=== PATIENT | male | born 1970 | race Caucasian/White ===

== ENCOUNTER 2017-08-01 21:43 | Emergency (ER) | payer OTHER ==
[~2017-08-01] VITALS: Ht 175.3 cm; Wt 84.8 kg
[2017-08-01 21:45] VITALS: TEMP 36.8; Ht 175.3 cm; Wt 84.8 kg
[2017-08-01 22:18] VITALS: BP 115/69; PULSE 82; O2SAT 96
--- NOTE | 2017-08-01 22:18 | DIAGNOSTIC IMAGING REPORT ---
LEFT ANKLE 3 VIEWS CLINICAL HISTORY: Left ankle twisting injury. FINDINGS: 3 views of the left ankle are obtained. No prior studies are available for comparison at the time of dictation. The skeletal structures are well mineralized. There is a comminuted and minimally distracted avulsion fracture seen along the dorsal aspect of the navicular with overlying soft tissue edema. This is only seen on the lateral view. There is also likely tiny avulsion fragment from the inferior aspect of the lateral malleolus seen only on the frontal view. There is an ankle joint effusion. The ankle mortise is intact. IMPRESSION: 1. There is a comminuted avulsion fracture along the dorsal surface of the navicular with overlying soft tissue edema. 2. There is also likely tiny avulsion fracture from the inferior aspect of the lateral malleolus. Electronically signed by: Kvng Lopez M.D. 08/01/2017 10:17 PM Dictated Date/Time: 08/01/2017 10:15 PM
--- NOTE | 2017-08-01 22:28 | EMERGENCY ROOM VISIT NOTE ---
ED Visit Note First contact with patient: 21:46 CHIEF COMPLAINT: Ankle pain HISTORY OF PRESENT ILLNESS: This 47 yo patient presents to the emergency department after sustaining an injury to the left ankle and foot with a twisting, inversion motion on a misstep on a stair. The patient complains of pain along the outside of the ankle. The patient denies pain of the foot. The patient rates the pain as throbbing and 5/10. The patient is barely able to bear weight on the foot. Constant pain, worse with movement, weight bearing, and the dependent position. No knee pain, the patient is able to move their toes. No numbness or weakness of the foot, no laceration. The patient has not had a previous fracture to this ankle. The patient has taken Motrin for the pain. The patient denies any other injury. REVIEW OF SYSTEMS: A 6 system review of systems was completed with positives and pertinent negatives listed in the HPI. ALLERGIES: Sulfa MEDICATIONS: None PMH: None SOCIAL HISTORY: No drug use PHYSICAL EXAM: Vital Signs: Reviewed Nurse's notes, vital signs stable. GENERAL : Pleasant male, no acute distress, but appears in pain, well-developed, well- nourished. MENTAL STATUS: Alert, oriented to person place and time, and cooperative. MUSCULOSKELETAL: The left ankle is swollen and tender over the lateral malleolus, but the skin is intact and there is no ligamentous instability. There is no fifth metatarsal tenderness. There is no tenderness over the rest of the foot. There is no calf or tibia/fibular tenderness. There is no visual deformity. The foot and toes are warm and well-perfused. Dorsalis pedis pulse 2+. Sensation to pain and light touch is intact. Capillary refill less than 2 seconds. EMERGENCY DEPARTMENT COURSE: I examined the patient. Ice is applied and patient declined pain medicine. X-rays of the left ankle were reviewed by myself and read by radiology and reveal [~ rep ct add3]] LEFT ANKLE 3 VIEWS CLINICAL HISTORY: Left ankle twisting injury. FINDINGS: 3 views of the left ankle are obtained. No prior studies are available for comparison at the time of dictation. The skeletal structures are well mineralized. There is a comminuted and minimally distracted avulsion fracture seen along the dorsal aspect of the navicular with overlying soft tissue edema. This is only seen on the lateral view. There is also likely tiny avulsion fragment from the inferior aspect of the lateral malleolus seen only on the frontal view. There is an ankle joint effusion. The ankle mortise is intact. IMPRESSION: 1. There is a comminuted avulsion fracture along the dorsal surface of the navicular with overlying soft tissue edema. 2. There is also likely tiny avulsion fracture from the inferior aspect of the lateral malleolus. Electronically signed by: Kvng Lopez M.D. Ortho-last posterior and stirrup splint was applied to the ankle under my direction and the position was satisfactory. Neurovascular status was rechecked and intact. The patient was instructed of the use of crutches. Patient is from out of town. He is given a copy of his x-ray and advised to follow-up with his orthopedic doctor when he returns home for definitive care for his ankle injuries or in the ER for worsening signs or symptoms or as needed.. The patient was discharged home in good condition. Differential diagnoses include sprain, strain, fracture, dislocation and other etiologies were considered. DIAGNOSIS: Left ankle fracture DISCHARGE INSTRUCTIONS: Ibuprofen(Motrin, Advil) may be used for fever or pain. Use 600mg every six hours as needed. Take with food. Avoid using more than 2400mg in a 24 hour period. Do not use 2400mg per day for more than three consecutive days without physician direction. Prolonged inappropriate use can lead to stomach upset or ulcers. This medication can be taken if you need to drive, work, or perform activities which may be dangerous when taking narcotic pain medication. (AND/OR) Acetaminophen(Tylenol) may be used for fever or pain. Use 1000mg every six hours as needed. Avoid using more than 3000mg in a 24 hour period. This medication can be taken if you need to drive, work, or perform activities which may be dangerous when taking narcotic pain medication. Ice compresses for 20 minutes at a time four times daily for 2-3 days. Use the crutches as instructed. Rest and elevate your injury. Do not get the splint wet. If your splint feels excessively tight, you have worsening pain, develop numbness or tingling, or your digits appear blue, loosen the maurice wrap. Then reapply the maurice wrap gently without removing the splint. If your symptoms are not quickly relieved return to the ER for re- evaluation. Continue current medications. Return to the ER immediately for any numbness, tingling, severe pain, extreme swelling in the extremity or as needed. Call your Orthopedics on Thursday to arrange follow up for your injury. Current/Historical Medications No Active Prescriptions or Reported Meds Allergies Coded Allergies: Sulfa Antibiotics (Verified Allergy, Intermediate, rash, 08/01/17) Vital Signs Date Time Temp Pulse Resp B/P (MAP) Pulse Ox O2 Delivery O2 Flow Rate FiO2 08/01/17 22:18 82 18 115/69 96 Room Air 08/01/17 21:45 36.8 81 17 148/94 98 Room Air Departure Information Prescriptions No Active Prescriptions or Reported Meds Referrals No Doctor, Assigned (PCP) Patient Instructions My [facility]
== END 2017-08-01 22:45 | disposition home or self-care (01) ==
LOC: C.EDB 21:45 → C.EDD 22:45
DX: S82.892A Other fracture of left lower leg, initial encounter for closed fracture (principal); X50.9XXA Other and unspecified overexertion or strenuous movements or postures, initial encounter